=== PATIENT | female | born 1940 ===

== ENCOUNTER 2018-04-27 08:33 | Outpatient (CLI) | payer OTHER | END 2018-04-27 08:35 | disposition home or self-care (01) | LOC: SONOGRAMA 08:33 | DX: K80.10 Calculus of gallbladder with chronic cholecystitis without obstruction (principal) ==

== ENCOUNTER 2020-07-03 08:42 | Outpatient (CLI) | payer OTHER | END 2020-07-03 09:24 | disposition home or self-care (01) | LOC: OFIC 805 08:42 | PROVIDERS: ATTEND Otolaryngology Otology & Neurotology | DX: R09.82 Postnasal drip (principal); J30.89 Other allergic rhinitis; K21.9 Gastro-esophageal reflux disease without esophagitis; R05 Cough ==

== ENCOUNTER 2020-10-12 12:31 | Emergency (ER) | payer OTHER ==
[~2020-10-12] VITALS: Ht 162.6 cm; Wt 71.7 kg
[2020-10-12] MEDS ORDERED: CHILDREN'S ASPI81 MG PO (12:38)
[2020-10-12] MEDS ORDERED: PEPCID AC10 MG PO (12:38)
[2020-10-12] MEDS ORDERED: DRAMAMINE LESS25 MG PO (12:38)
[2020-10-12] MEDS ORDERED: PROTONIX20 MG PO (12:39)
[2020-10-12] MEDS ORDERED: FENOFIBRATE50 MG PO (12:39)
[2020-10-12] MEDS ORDERED: CALTRATE 600 +1 EACH PO (12:39)
[2020-10-12] MEDS ORDERED: KATERZIA1 MG/1 ML PO (12:39)
[2020-10-12] MEDS ORDERED: ATORVASTATIN CA10 MG PO (12:39)
[2020-10-12] MEDS ORDERED: DUTOPROL 100-11 EACH PO (12:40)
== END 2020-10-12 18:05 | disposition home or self-care (01) ==
LOC: ER 12:31
DX: K59.09 Other constipation (principal); N39.0 Urinary tract infection, site not specified; R10.31 Right lower quadrant pain

== ENCOUNTER 2022-01-03 05:54 | Emergency (ER) | payer OTHER ==
[~2022-01-03] VITALS: Ht 157.5 cm; Wt 63.5 kg
[~2022-01-03 05:54] MED LIST: ATORVASTATIN CA10 MG PO; CALTRATE 600 +1 EACH PO; CHILDREN'S ASPI81 MG PO; DRAMAMINE LESS25 MG PO; DUTOPROL 100-11 EACH PO; FENOFIBRATE50 MG PO; KATERZIA1 MG/1 ML PO; PEPCID AC10 MG PO; PROTONIX20 MG PO
[2022-01-03] MEDS ORDERED: ABANEU-SL TABL1 EACH SL (06:10)
== END 2022-01-03 11:05 ==
LOC: ER 05:54
DX: M62.838 Other muscle spasm (principal); M54.2 Cervicalgia; I10 Essential (primary) hypertension